=== PATIENT | female | born 1950 | race Caucasian/White ===

== ENCOUNTER 2017-12-12 13:35 | Inpatient (IN) | payer OTHER, MEDICARE ==
[~2017-12-12] VITALS: Ht 170.2 cm; Wt 104.5 kg
[2017-12-12 13:48] VITALS: Ht 170.2 cm; Wt 104.5 kg
[2017-12-12 15:22] LABS: BASOPHIL % 0.2 % (0-2); PLATELET COUNT 269 x10^3mcL (130-400); RED CELL DISTRIBUTION WIDTH 13.6 % (11.5-14.5)
[2017-12-12 15:34] LABS: CALCIUM 9.1 mg/dL (8.5-10.1); CARBON DIOXIDE 32.2 mmol/L (21-32); CHLORIDE SERUM 100 mmol/L (98-107); CREATININE SERUM 0.8 mg/dL (0.6-1.0); GFR1 > 60 mL/min; GLUCOSE SERUM 168 mg/dL (74-106); POTASSIUM SERUM 4.4 mmol/L (3.5-5.1); SODIUM SERUM 137 mmol/L (136-145)
[2017-12-12 15:38] LABS: ALBUMIN 3.7 g/dL (3.4-5.0); ALKALINE PHOSPHATASE 139 U/L (46-116); ALT/SGPT 51 U/L (14-59); AST/SGOT 40 U/L (15-37); BILIRUBIN TOTAL 0.5 mg/dL (0.20-1.00); TOTAL PROTEIN, SERUM 7.9 g/dL (6.4-8.2)
[2017-12-12] MEDS ORDERED: ASPIR 8181 MG PO (17:01)
[2017-12-12] MEDS ORDERED: MOT600 PO (17:01)
[2017-12-12] MEDS ORDERED: HYDROCHLOROTHIA25 MG PO (17:02)
[2017-12-12] MEDS ORDERED: METFORMIN HYDR500 M1 PO (17:02)
[2017-12-12] MEDS ORDERED: PAROXETINE HCL20 M1 PO (17:02)
[2017-12-12] MEDS ORDERED: ATORVASTATIN CA40 M1 PO (17:03)
[2017-12-12] MEDS ORDERED: COLACE100 MG PO (17:03)
[2017-12-12] MEDS ORDERED: AMLODIPINE BESYL5 M2 PO (17:04)
[2017-12-12] MEDS ORDERED: TOPROL XL25 MG PO (17:04)
[2017-12-12 17:31] LABS: CHOLESTEROL/HDL RATIO 3.4; MAGNESIUM 1.9 mg/dL (1.8-2.4); PHOSPHOROUS 3.2 mg/dL (2.5-4.9); T3 TOTAL 1.07 ng/mL
[2017-12-12 17:36] VITALS: BP 155/63
[2017-12-12 17:40] LABS: FREE THYROXINE INDEX 2.9 ug/dL (1.4-4.5); T4(THYROXINE) 8.8 ug/dL (4.7-13.3)
[2017-12-12 18:05] VITALS: BP 155/63
[2017-12-12 20:44] VITALS: BP 118/53
[2017-12-13 02:00] LABS: microscopic required? NO
[2017-12-13 02:20] LABS: UA SPECIFIC GRAVITY <=1.005 (1.005-1.035); urine erythrocyte NEGATIVE (NEGATIVE)
[2017-12-13 06:12] VITALS: BP 120/55
[2017-12-13 06:33] LABS: BASOPHIL % 0.4 % (0-2); PLATELET COUNT 222 x10^3mcL (130-400); RED CELL DISTRIBUTION WIDTH 13.5 % (11.5-14.5)
[2017-12-13 07:04] LABS: CALCIUM 9.3 mg/dL (8.5-10.1); CARBON DIOXIDE 31.6 mmol/L (21-32); CHLORIDE SERUM 103 mmol/L (98-107); CREATININE SERUM 0.7 mg/dL (0.6-1.0); GFR1 > 60 mL/min; GLUCOSE SERUM 115 mg/dL (74-106); POTASSIUM SERUM 3.6 mmol/L (3.5-5.1); SODIUM SERUM 140 mmol/L (136-145)
[2017-12-13 09:23] VITALS: BP 145/61
[2017-12-13 12:52] VITALS: BP 136/62
[2017-12-13 17:39] VITALS: BP 127/82
[2017-12-13 21:33] VITALS: BP 128/65
[2017-12-14 05:44] VITALS: BP 131/69
[2017-12-14 06:01] LABS: BASOPHIL % 0.4 % (0-2); PLATELET COUNT 227 x10^3mcL (130-400); RED CELL DISTRIBUTION WIDTH 13.5 % (11.5-14.5)
[2017-12-14 06:18] LABS: CALCIUM 9.3 mg/dL (8.5-10.1); CARBON DIOXIDE 31.8 mmol/L (21-32); CHLORIDE SERUM 104 mmol/L (98-107); CREATININE SERUM 0.7 mg/dL (0.6-1.0); GFR1 > 60 mL/min; GLUCOSE SERUM 129 mg/dL (74-106); SODIUM SERUM 142 mmol/L (136-145)
[2017-12-14 10:37] VITALS: BP 151/77
[2017-12-14 13:30] VITALS: BP 136/69
[2017-12-14 16:39] VITALS: BP 141/64
[2017-12-14 17:01] VITALS: BP 141/64
== END 2017-12-14 19:44 | disposition home or self-care (01) | DRG 198 ==
LOC: ED 13:35 → DU 16:52
PROVIDERS: Family Medicine
DX: I25.10 Atherosclerotic heart disease of native coronary artery without angina pectoris (principal); N17.0 Acute kidney failure with tubular necrosis; E11.9 Type 2 diabetes mellitus without complications; K21.9 Gastro-esophageal reflux disease without esophagitis; F41.8 Other specified anxiety disorders; I10 Essential (primary) hypertension; K59.09 Other constipation; R32 Unspecified urinary incontinence; Z79.82 Long term (current) use of aspirin; Z68.36 Body mass index [BMI] 36.0-36.9, adult; Z79.84 Long term (current) use of oral hypoglycemic drugs; Z79.1 Long term (current) use of non-steroidal anti-inflammatories (NSAID)
CPT/HCPCS: 82962; 83880; 84439; 85378; A9500; J2270; J2785; J7030; Q0092; Q0163